=== PATIENT | female | born 1975 | race African-American/Black ===

== ENCOUNTER 2016-09-25 23:46 | Emergency (ER) | payer SELFPAY ==
--- NOTE | ~2016-09-25 | CR72 ---
[facility] A Service of [facility] & [facility] RADIOLOGY TEXT RESULTS PATIENT: GOLDEN NELSON LOCATION: [facility] : 75 UNIT #: [id number] AGE: [address]: Lissett Veloz MD SEX: F ORDER DR: [id number] [facility] [address] [place], [place] [address] [id number] E MR#: [id number] Acc #: [id number] NAME: GOLDEN NELSON. : 1975 SEX: F STUDY DATE/TIME: 09/26/2016 1:12 UNIT: [facility] ROOM: STUDY DESCRIPTION: CR Chest Single View Portable Attending Physician: Lissett Veloz M.D. Ordering Physician: Lissett Veloz M.D. Primary Care Physician: Primary Care Physician No MEDICAL IMAGING REPORT This report is preliminary unless electronic signature is present EXAM Portable chest INDICATION Cough and shortness of air. PROCEDURE Frontal view chest COMPARISON 04/26/2014 FINDINGS Mild cardiomegaly. No dense consolidation. No pleural fluid. No pneumothorax. IMPRESSION Mild cardiomegaly. No active process. No dense consolidation. Dictated by... Gildardo Merino M.D. THIS IS AN ELECTRONICALLY VERIFIED REPORT Gildardo Merino M.D. at 09/26/2016 9:58 PM Evette TD: 09/26/2016 08:43 JOB #: [id number] MEDICAL IMAGING REPORT Page 1 of 1 COPY
[~2016-09-25 23:46] MED LIST: ALBUTEROL17 GM INH; AMOXICILLIN500 M1 PO; ATENOLOL-CHLORT1 TA3 PO; FLAGYL PO; FLEXERIL PO; GLUCOPHAGE500 M1 PO; LIDOCAINE HC MM; MEDROL4 MG/DOSE- PO; NAPROXEN PO; PHENERGAN PO; PHENERGAN25 MG PO; PREDNISONE PO; RELION CONFIRM MC; VICODIN 5/1 TAB 5/50 PO; ZITHROMAX PO
== END 2016-09-26 02:35 | disposition home or self-care (01) ==
LOC: CED 23:46
DX: J20.9 Acute bronchitis, unspecified (principal); E11.9 Type 2 diabetes mellitus without complications; I10 Essential (primary) hypertension; J45.909 Unspecified asthma, uncomplicated; Z90.49 Acquired absence of other specified parts of digestive tract; F17.210 Nicotine dependence, cigarettes, uncomplicated; Z88.5 Allergy status to narcotic agent; Z91.030 Bee allergy status; Z79.899 Other long term (current) drug therapy
CPT/HCPCS: 71010; 82947; 94640; 99284

== ENCOUNTER 2016-11-07 06:51 | Emergency (ER) | payer SELFPAY ==
--- NOTE | ~2016-11-07 | CR72 ---
[facility] A Service of [facility] & [facility] RADIOLOGY TEXT RESULTS PATIENT: GOLDEN NELSON LOCATION: [facility] : 75 UNIT #: [id number] AGE: [address]: Mook Vences DO SEX: F ORDER DR: [id number] [facility] [address] [place], [place] [address] [id number] MR#: [id number] Acc #: [id number] NAME: GOLDEN NELSON. : 1975 SEX: F STUDY DATE/TIME: 11/07/2016 7:12 UNIT: [facility] ROOM: STUDY DESCRIPTION: CR Chest Single View Portable Attending Physician: Mook Vences D.O. Ordering Physician: Mook Vences D.O. Primary Care Physician: Primary Care Physician No MEDICAL IMAGING REPORT This report is preliminary unless electronic signature is present EXAM Portable chest one-view, 11/07/2016 COMPARISON 09/26/2016 CLINICAL HISTORY Short of air since this morning. FINDINGS There is no infiltrate, effusion or pneumothorax. There is no suspicious nodule but there is limited old granulomatous disease. Heart size within normal limits. IMPRESSION Old granulomatous disease, no acute disease. Dictated by... Polo Cerda M.D. THIS IS AN ELECTRONICALLY VERIFIED REPORT Polo Cerda M.D. at 11/08/2016 10:25 AM SID/della TD: 11/07/2016 14:33 JOB #: [id number] MEDICAL IMAGING REPORT Page 1 of 1 COPY
--- NOTE | ~2016-11-07 | EKG ---
PATIENT: GOLDEN NELSON UNIT #: [id number] Ventricular Rate: 72 BPM Atrial Rate: 72 BPM P-R Interval: 138 ms QRS Duration: 80 ms Q-T Interval: 390 ms QTC Calculation(Bezet): 427 ms P Freeland: 65 degrees Calculated R Freeland: 72 degrees Calculated T Freeland: 68 degrees Diagnosis Line: Normal sinus rhythm Diagnosis Line: Normal ECG Diagnosis Line: When compared with ECG of 26-APR-2014 17:13, Diagnosis Line: No significant change was found Diagnosis Line: Confirmed by FRANKLYN CARIAS MD ([id number]) on Diagnosis Line: 11/07/2016 4:24:55 PM INTERPRETING MD: EVERARDO
[2016-11-07 07:52] LABS: POC - CKMB <1.0 ng/mL (0.0-7.9); POC - TROPONIN <0.05 ng/mL (<=0.05)
[2016-11-07 08:10] LABS: BASOPHIL% 0.5 % (0-2.5); EOSINOPHIL# 0.3 X10e3 (0-0.7); EOSINOPHIL% 4.1 % (0.0-7.0); HEMOGLOBIN 12.7 gm/dL (12.0-16.0); LYMPHOCYTE# 2.3 X10e3 (1.0-3.5); LYMPHOCYTE% 36.8 % (17.0-45.0); MEAN CELL VOLUME 94.4 FL (83-96); MEAN CORPUSCULAR HEMOGLOBIN 30.6 PG (28-34); MEAN CORPUSCULAR HGB CONC 32.4 g/dL (30-36); MEAN PLATELET VOLUME 8.8 FL (6.5-11.5); MONOCYTE# 0.3 X10e3 (0-1.0); MONOCYTE% 4.3 % (3.0-12.0); NEUTROPHIL# 3.4 X10e3 (1.5-7.1); NEUTROPHIL% 54.3 % (40-75); PLATELET COUNT 188 X10e3 (140-420); RED BLOOD COUNT 4.13 X10e (3.90-5.30); RED CELL DISTRIBUTION WIDTH 13.5 % (11.0-15.5); WHITE BLOOD COUNT 6.3 X10e3 (4.0-10.5)
[2016-11-07 08:11] LABS: DIFF IND NO
[2016-11-07 08:24] LABS: INR 0.9; PARTIAL THROMBOPLASTIN TIME 25.7 SECONDS (23.5-31.3); PROTHROMBIN TIME (PATIENT) 9.7 SECONDS (10.0-11.7)
[2016-11-07 10:17] LABS: ALBUMIN SERUM 3.5 g/dL (3.5-5.0); BILIRUBIN, DIRECT 0.1 mg/dL (0.0-0.2); BILIRUBIN,INDIRECT 0.4 mg/dL (0.0-0.9); BILIRUBIN,TOTAL 0.5 mg/dL (0.2-2.0); BUN/CREATININE RATIO 18.88; CALCIUM SERUM 8.4 mg/dL (8.4-10.2); CREATININE SERUM 0.9 mg/dL (0.6-1.4); GLOM FILT RATE Estimated 92.8 mL/min (>60); POTASSIUM 3.9 mmol/L (3.5-5.1); PROTEIN TOTAL SERUM 6.2 g/dL (6.0-8.3)
== END 2016-11-07 10:25 | disposition home or self-care (01) ==
LOC: CED 06:51
PROVIDERS: Emergency Medicine
DX: R07.9 Chest pain, unspecified (principal); R06.02 Shortness of breath; J45.20 Mild intermittent asthma, uncomplicated; Z90.49 Acquired absence of other specified parts of digestive tract; F17.200 Nicotine dependence, unspecified, uncomplicated; Z88.5 Allergy status to narcotic agent; Z91.030 Bee allergy status; Z79.84 Long term (current) use of oral hypoglycemic drugs
CPT/HCPCS: 36415; 71010; 80048; 80076; 82553; 83880; 84484; 85025; 85379; 85610; 85730; 93005; 94640; 96374; 99285; J2930